=== PATIENT | male | born 1970 | race Caucasian/White ===

== ENCOUNTER 2020-09-18 06:20 | Emergency (ER) | payer OTHER ==
[~2020-09-18] VITALS: Ht 177.8 cm; Wt 118.4 kg
[2020-09-18] MEDS ORDERED: BUPRENORPHINE HC8 MG SL (06:39)
[2020-09-18] MEDS ORDERED: MORPHINE SULFAT15 MG PO (09:40)
[2020-09-18] MEDS ORDERED: ZOFRAN4 MG PO (09:40)
[2020-09-18] MEDS ORDERED: FLOMAX0.4 MG PO (09:40)
[2020-09-18] MEDS ORDERED: KETOROLAC TROME10 MG PO (09:40)
[2020-09-21] MEDS ORDERED: MORPHINE SULFAT20 M1 PO (14:21)
== END 2020-09-18 10:06 | disposition short-term general hospital (02) ==
LOC: ED 06:20
DX: N13.2 Hydronephrosis with renal and ureteral calculous obstruction (principal); Z87.442 Personal history of urinary calculi; Z88.8 Allergy status to other drugs, medicaments and biological substances; Z79.899 Other long term (current) drug therapy; Z87.891 Personal history of nicotine dependence
CPT/HCPCS: 74176; 80053; 81001; 83690; 85025; 96374; 96375; 99285-25; J1170; J1885; J2405